=== PATIENT | female | born 1960 | race Caucasian/White ===

== ENCOUNTER 2018-09-03 10:35 | Emergency (ER) | payer OTHER ==
--- OUTSIDE RECORDS SUMMARY | 2018-09-03 10:36 | XMS REPORT | Clinical Summary ---
:1960 Author Organization [facility] Address [address] [place] [address] Care Team Providers Name Role Phone Kalani Krishnamurthy MD Primary Care Provider Allergies No Known Allergies Medications Medication Sig Dispensed Refills Start Date End Date Status amLODIPine (NORVASC) 5 Take 5 mg by 4 04/25/2017 Active mg tablet mouth once daily. atorvastatin (LIPITOR) Take 20 mg by 3 04/06/2017 Active 20 MG tablet mouth once daily. meloxicam (MOBIC) 15 Take 1 tablet 30 tablet 2 05/01/2017 05/01/2018 mg tablet (15 mg total) by mouth daily. sulfamethoxazole-trime Take 1 tablet 28 tablet 0 09/24/2017 10/08/2017 thoprim (BACTRIM DS) by mouth 2 800-160 mg per tablet (two) times a day for 14 days. Active Problems Problem Noted Date Traumatic arthritis of right knee 06/29/2018 Internal derangement of left knee 05/01/2017 Acute pain of left knee 05/01/2017 Contusion of right knee 05/01/2017 Chronic pain of right knee 01/20/2017 Trochanteric bursitis of right hip 01/20/2017 Degenerative arthritis of thumb 01/20/2017 Primary osteoarthritis of right knee 01/20/2017 Encounters Date Type Specialty Care Team Description 08/31/2018 Telephone Orthopedic Surgery Cierra Levine MA 08/25/2018 Office Visit Orthopedic Surgery Joey Santacruz Traumatic arthritis of right knee (Primary Dx) 08/06/2018 Telephone Orthopedic Surgery Hiral Daniels RN 06/29/2018 Office Visit Orthopedic Surgery Noe Blake Traumatic arthritis MD Geovany of right knee (Primary Dx) 2018 Orders Only Orthopedic Surgery Tracie Velázquez, Right knee pain, MA unspecified chronicity (Primary Dx) 09/24/2017 Orders Only Orthopedic Surgery Joey Santacruz MD 09/15/2017 Hospital Encounter Joey Trent MD 09/15/2017 Hospital Encounter Joey Trent MD 09/15/2017 Hospital Encounter Joey Trent MD 09/15/2017 Hospital Encounter Joey Trent MD 09/15/2017 Hospital Encounter Joey Trent MD after 09/02/2017 Social History Tobacco Use Types Packs/Day Years Used Date Never Smoker Sex Assigned at Date Recorded Not on file Job Start Date Occupation Industry Not on file Not on file Not on file Travel History Travel Start Travel End No recent travel history available. Last Filed Vital Signs Not on file Plan of Treatment Date Type Specialty Care Team Description 09/13/2018 Hospital Encounter Orthopedic Surgery Joey Santacruz MD [address] [facility] [address] [place] [address] [id number] 09/13/2018 Surgery Orthopedic Surgery Joey Santacruz, RIGHT TOTAL KNEE MD REPLACEMENT [address] [facility] [address] [place], [place] [id number] Health Maintenance Due Date Last Done Comments CERVICAL CANCER SCREENING 1983 BREAST CANCER SCREENING 2012 COLON CANCER SCREENING 2012 SHINGRIX VACCINE (1 of 2) 2012 INFLUENZA VACCINE 04/28/2018 HEPATITIS B VACCINES Aged Out No longer eligible based on patient's age to complete this topic IPV VACCINES Aged Out No longer eligible based on patient's age to complete this topic MENINGOCOCCAL VACCINE Aged Out No longer eligible based on patient's age to complete this topic Procedures Procedure Name Priority Date/Time Associated Diagnosis Comments XR KNEE 3 VW RIGHT Routine 06/29/2018 2:04 Right knee pain, Results for this PM CDT unspecified procedure are in chronicity the results section. XR LEG LENGTH Routine 06/29/2018 2:03 Right knee pain, Results for this EVALUATION PM CDT unspecified procedure are in chronicity the results section. XR UPPER EXTREMITY Routine 09/02/2017 3:05 Results for this EXTERNAL STUDY PM TOP FRAME FITTER procedure are in the results section. XR UPPER EXTREMITY Routine 09/02/2017 3:05 Results for this EXTERNAL STUDY PM TOP FRAME FITTER procedure are in the results section. XR SPINE EXTERNAL Routine 09/02/2017 2:58 Results for this STUDY PM TOP FRAME FITTER procedure are in the results section. XR SPINE EXTERNAL Routine 09/02/2017 2:58 Results for this STUDY PM TOP FRAME FITTER procedure are in the results section. XR SPINE EXTERNAL Routine 09/02/2017 2:51 Results for this STUDY PM TOP FRAME FITTER procedure are in the results section. after 09/02/2017 Results XR Knee 3 Vw Right (06/29/2018 2:04 PM CDT) Narrative Performed At [facility] 3 views of the right knee reveal significant bone on bone arthritis of the lateral tibiofemoral compartment with subsidence into the tibia and overall valgus alignment.There are osteophytes in the medial tibiofemoral compartment as well as the patellofemoral joint.There is a surgical staple in the medial proximal tibia. Performing Organization Address [facility] Phone Number [facility] [address] [place] [address] XR Leg Length Evaluation (06/29/2018 2:03 PM CDT) Narrative Performed At Long leg standing radiographs reveal overall valgus alignment of the right [facility] lower extremity.No evidence of hip arthritis. Performing Organization Address [facility] Phone Number [facility] [address] [place] [address] XR Upper Extremity External Study (09/02/2017 3:05 PM TOP FRAME FITTER)Only the most recent of2 resultswithin the time period is included. Narrative Performed At This exam was not acquired at a [facility] facility and has not been [facility] interpreted by a [facility] Provider.The exam was imported into our imaging system for comparisons purposes. Performing Organization Address [facility] Phone Number [facility] [address] [place] [address] XR Spine External Study (09/02/2017 2:58 PM TOP FRAME FITTER)Only the most recent of3 resultswithin the time period is included. Narrative Performed At This exam was not acquired at a [facility] facility and has not been [facility] interpreted by a [facility] Provider.The exam was imported into our imaging system for comparisons purposes. Performing Organization Address City/State/Zipcode Phone Number [facility] [address] [place] [address] after 09/02/2017 Insurance Payer Benefit Plan / Group Subscriber ID Type Phone Address AETNA AETNA PPO OPEN CHOICE xxxxxxxxxx PPO Advance Directives Patient has advance care planning documents on file. For more information, please contact:Sanket Martin[address] [place] [address]
[2018-09-03] MEDS ORDERED: ASPIRIN 81 MG CHEWABLE TABLET ONE (11:31)
[2018-09-03 11:35] LABS: Absolute Lymphocytes (CBC) 1.1 K/uL (0.7-4.9); Absolute Monocytes 0.4 K/uL (0.1-1.3); Absolute Neutrophil 2.3 K/uL (1.8-8.0); Basophils % 1.5 % (0-1.3); Eosinophils % 4.8 % (0-4.4); Hematocrit 37.3 % (36.0-45.0); Lymphocytes % 27.3 % (15.3-44.8); MCH 28.9 pg (27.0-35.0); MCV 84.3 fL (80-100); MPV 8.6 fL (7.6-11.3); Monocytes % 9.4 % (3.3-12.3); RBC Red Blood Cell Count 4.43 M/uL (3.86-4.86)
[2018-09-03 11:43] LABS: Protime INR 1.08
--- NOTE | 2018-09-03 11:48 | RAD REPORT ---
EXAM DESCRIPTION: RAD - Chest Single View - 09/03/2018 11:43 am CLINICAL HISTORY: CHEST PAIN Chest pain. COMPARISON: No comparisons FINDINGS: Portable technique limits examination quality. The lungs are grossly clear. The heart is normal in size. No displaced fractures. IMPRESSION: No acute intrathoracic process suspected.
[2018-09-03 11:57] LABS: ALT/SGPT 22 U/L (12-78); AST/SGOT 19 U/L (15-37); Albumin 3.7 g/dL (3.4-5.0); Alkaline Phosphatase 100 U/L (45-117); BUN Blood Urea Nitrogen 13 mg/dL (7-18); Bicarbonate 25 mmol/L (21-32); Bilirubin Direct 0.1 mg/dL (0-0.2); Bilirubin Total 0.3 mg/dL (0.2-1.0); Glucose Level 115 mg/dL (74-106); Magnesium 2.1 mg/dL (1.8-2.4); NT PRO-BNP 23 pg/mL (<125); Potassium 3.6 mmol/L (3.5-5.1); Protein, Total 7.4 g/dL (6.4-8.2); Sodium Level 142 mmol/L (136-145); Troponin (Emerg Dept Use Only) < 0.02 ng/mL (0.0-0.045)
--- NOTE | 2018-09-03 12:39 | RAD REPORT ---
EXAM DESCRIPTION: CT - Thorax W/ Con CLINICAL HISTORY: Chest pain PAIN COMPARISON: Chest Single View dated 09/03/2018 FINDINGS: The lungs are clear. No pleural thickening or pleural effusion. No pneumothorax. No axillary, mediastinal or hilar adenopathy. No concerning bony finding. No gross upper abdominal finding. All CT scans are performed using dose optimization technique as appropriate and may include automated exposure control or mA/KV adjustment according to patient size. IMPRESSION: Negative study.
--- NOTE | 2018-09-03 14:15 | EDPHYS ---
Physician Documentation [facility] Name: Mireya Momin Age: 58 yrs Sex: Female : 1960 Arrival Date: 09/03/2018 Time: 10:35 Bed 4 Private MD: Kalani Krishnamurthy F ED Physician Dennys Dickerson HPI: 09/03 11:12 This 58 yrs old Female presents to ER via Ambulatory with complaints of Chest kdr Pain. 11:12 The patient or guardian reports chest pain that is located primarily in the substernal kdr area, mid-sternal area. Onset: just prior to arrival, today. The pain does not radiate. Associated signs and symptoms: Pertinent negatives: abdominal pain, cough, diaphoresis, dizziness, headache, lower extremity pain, lower extremity swelling, lightheadedness, nausea, near syncope, palpitations, recent travel, shortness of breath, syncope, vomiting. The chest pain is described as aching, dull, causing indigestion, a pressure. Duration: The patient or guardian reports a single episode, that is still ongoing, and unchanged. Modifying factors: The symptoms are alleviated by nothing. the symptoms are aggravated by activity, emotionally stressful situations, swallowing. Severity of pain: At its worst the pain was mild moderate just prior to arrival, in the emergency department the pain is unchanged. The patient has experienced similar episodes in the past, a few times. The patient has not recently seen a physician. The patient had a stress test earlier this week as pre-surgery screen. She does not know the results but reports no CV issues with completing the test. Historical: - Allergies: 10:47 PENICILLINS; iw - Home Meds: 10:53 [place] Thyroid Oral [Active]; Prozac Oral [Active]; iw - PSHx: 10:53 Thyroidectomy; iw - Immunization history:: Adult Immunizations up to date. - Social history:: Smoking status: Patient/guardian denies using tobacco. - Ebola Screening: : Patient negative for fever greater than or equal to 101.5 degrees Fahrenheit, and additional compatible Ebola Virus Disease symptoms Patient denies exposure to infectious person Patient denies travel to an Ebola-affected area in the 21 days before illness onset No symptoms or risks identified at this time. ROS: 11:12 Constitutional: Negative for fever, chills, and weight loss, Eyes: Negative for injury, kdr pain, redness, and discharge, ENT: Negative for injury, pain, and discharge, Neck: Negative for injury, pain, and swelling, Respiratory: Negative for shortness of breath, cough, wheezing, and pleuritic chest pain, Abdomen/GI: Negative for abdominal pain, nausea, vomiting, diarrhea, and constipation, Back: Negative for injury and pain, : Negative for injury, bleeding, discharge, and swelling, MS/Extremity: Negative for injury and deformity, Skin: Negative for injury, rash, and discoloration, Neuro: Negative for headache, weakness, numbness, tingling, and seizure activity. Psych: Negative for depression, anxiety, suicide ideation, homicidal ideation, and hallucinations, Allergy/Immunology: Negative for hives, rash, and allergies, Endocrine: Negative for neck swelling, polydipsia, polyuria, polyphagia, and marked weight changes, She has had a partial thyroidectomy Hematologic/Lymphatic: Negative for swollen nodes, abnormal bleeding, and unusual bruising. 11:12 Cardiovascular: Positive for chest pain, Negative for edema, orthopnea, palpitations, paroxysmal nocturnal dyspnea, acute changes. Exam: 11:12 Constitutional: This is a well developed, well nourished patient who is awake, alert, kdr and in no acute distress. Head/Face: Normocephalic, atraumatic. Eyes: Pupils equal round and reactive to light, extra-ocular motions intact. Lids and lashes normal. Conjunctiva and sclera are non-icteric and not injected. Cornea within normal limits. Periorbital areas with no swelling, redness, or edema. Neck: Trachea midline, no thyromegaly or masses palpated, and no cervical lymphadenopathy. Supple, full range of motion without nuchal rigidity, or vertebral point tenderness. No Meningismus. Chest/axilla: Normal chest wall appearance and motion. Nontender with no deformity. No lesions are appreciated. Cardiovascular: Regular rate and rhythm with a normal S1 and S2. No gallops, murmurs, or rubs. Normal PMI, no JVD. No pulse deficits. Respiratory: Lungs have equal breath sounds bilaterally, clear to auscultation and percussion. No rales, rhonchi or wheezes noted. No increased work of breathing, no retractions or nasal flaring. Abdomen/GI: Soft, non-tender, with normal bowel sounds. No distension or tympany. No guarding or rebound. No evidence of tenderness throughout. Back: No spinal tenderness. No costovertebral tenderness. Full range of motion. Skin: Warm, dry with normal turgor. Normal color with no rashes, no lesions, and no evidence of cellulitis. MS/ Extremity: Pulses equal, no cyanosis. Neurovascular intact. Full, normal range of motion. Neuro: Awake and alert, GCS 15, oriented to person, place, time, and situation. Cranial nerves II-XII grossly intact. Motor strength 5/5 in all extremities. Sensory grossly intact. Cerebellar exam normal. Normal gait. Psych: Awake, alert, with orientation to person, place and time. Behavior, mood, and affect are within normal limits. Vital Signs: 10:46 BP 127 / 73; Pulse 71; Resp 16; Temp 97.7(TE); Pulse Ox 97% on R/A; Weight 86.18 kg; iw Height 5 ft. 7 in. (170.18 cm); Pain 9/10; 11:31 BP 121 / 78; Pulse 67; Resp 16; Pulse Ox 96% on R/A; Pain 0/10; jl7 12:30 BP 136 / 84; Pulse 53; Resp 16 S; Pulse Ox 98% on R/A; jl7 13:30 BP 147 / 90; Pulse 53; Resp 16 S; Pulse Ox 97% on R/A; jl7 14:36 BP 132 / 88; Pulse 53; Resp 16 S; Pulse Ox 97% on R/A; jl7 10:46 Body Mass Index 29.76 (86.18 kg, 170.18 cm) iw MDM: 14:14 Patient medically screened. kdr 17:50 Data reviewed: vital signs, nurses notes, lab test result(s), radiologic studies. kdr Counseling: I had a detailed discussion with the patient and/or guardian regarding: the historical points, exam findings, and any diagnostic results supporting the discharge/admit diagnosis, lab results, radiology results, the need for outpatient follow up. 09/03 11:10 Order name: Basic Metabolic Panel; Complete Time: 12:29 kdr 09/03 11:10 Order name: CBC with Diff; Complete Time: 12:29 kdr 09/03 11:10 Order name: LFT's; Complete Time: 12:29 kdr 09/03 11:10 Order name: Magnesium; Complete Time: 12:29 kdr 09/03 11:10 Order name: NT PRO-BNP; Complete Time: 12:29 kdr 09/03 11:10 Order name: PT-INR; Complete Time: 12:59 kdr 09/03 11:10 Order name: Troponin (emerg Dept Use Only); Complete Time: 12:29 [facility] 09/03 11:10 Order name: XRAY Chest (1 view); Complete Time: 12:29 [facility] 09/03 11:10 Order name: EKG; Complete Time: 11:12 kdr 09/03 11:10 Order name: Cardiac monitoring; Complete Time: 11:28 kdr 09/03 11:10 Order name: EKG - Nurse/Tech; Complete Time: 11:28 [facility] 09/03 11:11 Order name: CT Chest W/ Con; Complete Time: 12:59 kdr 09/03 13:00 Order name: Troponin (emerg Dept Use Only); Complete Time: 14:13 kdr 09/03 11:10 Order name: IV Saline Lock; Complete Time: 11:28 [facility] 09/03 11:10 Order name: Labs collected and sent; Complete Time: 11:28 [facility] 09/03 11:10 Order name: O2 Per Protocol; Complete Time: 11:28 [facility] 09/03 11:10 Order name: O2 Sat Monitoring; Complete Time: 11:28 kdr Administered Medications: 11:28 Drug: Aspirin 81 mg Route: PO; jl7 12:00 Follow up: Response: No adverse reaction jl7 Disposition: 09/03/18 14:14 Discharged to Home. Impression: Chest pain, unspecified, Acute stress reaction. - Condition is Stable. - Discharge Instructions: Panic Attacks, Nonspecific Chest Pain, [id number], Generalized Anxiety Disorder. - Prescriptions for Xanax 0.5 mg Oral Tablet - take 1 tablet by ORAL route every 8 hours As needed; 10 tablet. - Medication Reconciliation Form, Thank You Letter form. - Follow up: Kalani Krishnamurthy MD; When: 2 - 3 days; Reason: If symptoms return, Further diagnostic work-up, Recheck today's complaints, Continuance of care, Re-evaluation by your physician. - Problem is new. - Symptoms have improved. Signatures: Dispatcher [employer] EDOK Dennys Dickerson MD MD kdr Nesha Barahona RN RN iw Stanislaw Cruz RN RN jl7 Corrections: (The following items were deleted from the chart) 14:38 14:14 09/03/2018 14:14 Discharged to Home. Impression: Chest pain, unspecified; Acute jl7 stress reaction. Condition is Stable. Forms are Medication Reconciliation Form, Thank You Letter, Antibiotic Education, Prescription Opioid Use. Follow up: Kalani Krishnamurthy; When: 2 - 3 days; Reason: If symptoms return, Further diagnostic work-up, Recheck today's complaints, Continuance of care, Re-evaluation by your physician. Problem is new. Symptoms have improved. kdr
--- NOTE | 2018-09-03 14:15 | ER ---
Nurse's Notes [facility] Name: Mireya Momin Age: 58 yrs Sex: Female : 1960 Arrival Date: 09/03/2018 Time: 10:35 Bed 4 Private MD: Kalani Krishnamurthy F Diagnosis: Chest pain, unspecified;Acute stress reaction Presentation: 09/03 10:44 Presenting complaint: Patient states: was sent for stress test and EKG earlier this iw week for cardiac clearance before knee replacement, last night started having indigestion type pain in epigastric area, up into throat, intermittent, vomited once last night after coughing, states she has been under a lot of stress recently. Transition of care: patient was not received from another setting of care. Onset of symptoms was September 03, 2018. Risk Assessment: Do you want to hurt yourself or someone else? Patient reports no desire to harm self or others. Initial Sepsis Screen: Does the patient meet any 2 criteria? No. Patient's initial sepsis screen is negative. Does the patient have a suspected source of infection? No. Patient's initial sepsis screen is negative. Care prior to arrival: None. 10:44 Method Of Arrival: Ambulatory iw 10:44 Acuity: JODIE 3 iw Historical: - Allergies: 10:47 PENICILLINS; iw - Home Meds: 10:53 [place] Thyroid Oral [Active]; Prozac Oral [Active]; iw - PSHx: 10:53 Thyroidectomy; iw - Immunization history:: Adult Immunizations up to date. - Social history:: Smoking status: Patient/guardian denies using tobacco. - Ebola Screening: : Patient negative for fever greater than or equal to 101.5 degrees Fahrenheit, and additional compatible Ebola Virus Disease symptoms Patient denies exposure to infectious person Patient denies travel to an Ebola-affected area in the 21 days before illness onset No symptoms or risks identified at this time. Screenin:31 Abuse screen: Denies threats or abuse. Denies injuries from another. Nutritional jl7 screening: No deficits noted. Tuberculosis screening: No symptoms or risk factors identified. Fall Risk IV access (20 points). Assessment: 11:10 General: Appears in no apparent distress. uncomfortable, Behavior is calm, cooperative, jl7 appropriate for age. Pain: Complains of pain in mid-sternal area Pain does not radiate. Pain currently is 0 out of 10 on a pain scale. Quality of pain is described as pressure, sharp, Pain began suddenly, Is intermittent. Neuro: Level of Consciousness is awake, alert, obeys commands, Oriented to person, place, time, situation. Cardiovascular: Heart tones S1 S2 present Patient's skin is warm and dry. Rhythm is sinus rhythm. Respiratory: Airway is patent Respiratory effort is even, unlabored, Respiratory pattern is regular, symmetrical, Breath sounds are clear bilaterally. GI: No signs and/or symptoms were reported involving the gastrointestinal system. : No signs and/or symptoms were reported regarding the genitourinary system. EENT: No signs and/or symptoms were reported regarding the EENT system. Derm: Skin is pink, warm \T\ dry. Musculoskeletal: No signs and/or symptoms reported regarding the musculoskeletal system. 12:30 Reassessment: Patient appears in no apparent distress at this time. No changes from jl7 previously documented assessment. Patient and/or family updated on plan of care and expected duration. Pain level reassessed. Patient is alert, oriented x 3, equal unlabored respirations, skin warm/dry/pink. 13:30 Reassessment: Patient appears in no apparent distress at this time. Patient and/or jl7 family updated on plan of care and expected duration. Pain level reassessed. Patient is alert, oriented x 3, equal unlabored respirations, skin warm/dry/pink. Vital Signs: 10:46 BP 127 / 73; Pulse 71; Resp 16; Temp 97.7(TE); Pulse Ox 97% on R/A; Weight 86.18 kg; iw Height 5 ft. 7 in. (170.18 cm); Pain 9/10; 11:31 BP 121 / 78; Pulse 67; Resp 16; Pulse Ox 96% on R/A; Pain 0/10; jl7 12:30 BP 136 / 84; Pulse 53; Resp 16 S; Pulse Ox 98% on R/A; jl7 13:30 BP 147 / 90; Pulse 53; Resp 16 S; Pulse Ox 97% on R/A; jl7 14:36 BP 132 / 88; Pulse 53; Resp 16 S; Pulse Ox 97% on R/A; jl7 10:46 Body Mass Index 29.76 (86.18 kg, 170.18 cm) iw ED Course: 10:35 Patient arrived in ED. as 10:37 Kalani Krishnamurthy MD is Private Physician. as 10:45 Dennys Dickerson MD is Attending Physician. kdr 10:46 Triage completed. iw 10:46 Arm band placed on. iw 10:55 EKG done, by geotechnical laboratory technician. reviewed by Dennys Dickerson MD. at1 11:15 Inserted saline lock: 20 gauge in right antecubital area, using aseptic technique. jl7 Blood collected. 11:16 Radiology exam delayed due to lab results not completed at this time. (BUN/Creatinine). vr 11:20 Patient has correct armband on for positive identification. Placed in gown. Call light mh5 in reach. Side rails up X 1. Warm blanket given. Pillow given. anesthesia assistant on. Pulse ox on. NIBP on. 11:21 Stanislaw Cruz, RN is Primary Nurse. jl7 11:27 Basic Metabolic Panel Sent. mh5 11:27 CBC with Diff Sent. 5 11:27 LFT's Sent. mh5 11:27 Magnesium Sent. mh5 11:27 NT PRO-BNP Sent. mh5 11:27 PT-INR Sent. mh5 11:27 Troponin (emerg Dept Use Only) Sent. mh5 11:31 Patient maintains SpO2 saturation greater than 95% on room air. jl7 11:40 X-ray completed. Portable x-ray completed in exam room. Patient tolerated procedure mh1 well. 11:44 XRAY Chest (1 view) In Process Unspecified. EDMS 12:30 CT Chest W/ Con In Process Unspecified. EDMS 14:13 Kalani Krishnamurthy MD is Referral Physician. kdr 14:37 No provider procedures requiring assistance completed. IV discontinued, intact, jl7 bleeding controlled, No redness/swelling at site. Pressure dressing applied. Administered Medications: 11:28 Drug: Aspirin 81 mg Route: PO; jl7 12:00 Follow up: Response: No adverse reaction jl7 Outcome: 14:14 Discharge ordered by . kdr 14:38 Discharged to home ambulatory. jl7 14:38 Condition: stable 14:38 Discharge instructions given to patient, Instructed on discharge instructions, follow up and referral plans. medication usage, Demonstrated understanding of instructions, follow-up care, medications, Prescriptions given X 1. 14:38 Patient left the ED. jl7 Signatures: Dispatcher [employer] EDDennys Hrerera MD MD kdr Harvey, Martha 1 Gloria Azar Irene, Tiarra Cain RN, Amanda, [facility] Nay Azar Jahala, RN RN jl7
--- NOTE | 2018-09-03 15:11 | EKG ---
Test Date: 2018-09-03 Test Time: 10:52:52 Gift Shop Clerk: JANAK MEASUREMENT RESULTS: Intervals: Rate: 67 WY: 146 QRSD: 98 QT: 434 QTc: 458 [place]: P: 65 W[place]: 146 QRS: 54 T: 62 INTERPRETIVE STATEMENTS: Normal sinus rhythm Normal ECG No previous ECG available for comparison Electronically Signed On 09-03-18 15:10:28 TONGUE TRIMMER by Adis Saab
== END 2018-09-03 14:38 | disposition home or self-care (01) ==
LOC: ER 10:35
DX: F43.0 Acute stress reaction (principal); Z88.0 Allergy status to penicillin
CPT/HCPCS: 36415; 71045; 71260; 80048; 80076; 83735; 83880; 84484; 85025; 85610; 93005; 99285; Q9967